=== PATIENT | female | born 1980 | race Caucasian/White ===

== ENCOUNTER 2021-10-14 08:00 | Outpatient (CLI) | payer BC | END 2021-10-14 23:59 | disposition home or self-care (01) | LOC: LAB.N 08:00 | PROVIDERS: ATTEND Family Medicine | DX: U07.1 COVID-19 (principal) ==

== ENCOUNTER 2022-02-11 11:48 | Emergency (ER) | payer BC ==
[2022-02-11 12:00] VITALS: BP 142/86
--- NOTE | 2022-02-11 12:19 | ED Physician Documentation ---
History of Present Illness - Stated complaint Stated Complaint: L ARM INJURY - Chief complaint Chief Complaint: Trauma Ext - Additonal information Additional information: 41-year-old female presents emergency department for evaluation of acute left wrist injury. She is right-hand dominant. She was helping her son move a couch yesterday when the wrist twisted in an awkward manner and she felt a pop on the ulnar side. Now pain in the wrist with any pronation and supination. No swelling. No history of previous injury. Review of Systems Constitutional: reports: Reviewed and negative Nose: reports: Reviewed and negative Throat: reports: Reviewed and negative Musculoskeletal: reports: Extremity pain (left wrist) PD PAST MEDICAL HISTORY - Past Medical History Past Medical History: No Cardiovascular: None Respiratory: None Neuro: None Endocrine/Autoimmune: None GI: None DIRECTOR OF PROFESSIONAL SERVICES: None : None HEENT: None Psych: None Musculoskeletal: None Derm: None - Past Surgical History Past Surgical History: Yes General: Appendectomy Ortho: Arthroscopic surgery - Present Medications Home Medications: Ambulatory Orders Medication Instructions Recorded Confirmed No Known Home Medications 02/11/22 02/11/22 - Allergies Allergies/Adverse Reactions: Allergies Allergy/AdvReac Type Severity Reaction Status Date / Time No Known Drug Allergies Allergy Verified 02/11/22 11:57 - Social History Does the pt smoke?: No Smoking Status: Never smoker Does the pt drink ETOH?: Yes Does the pt have substance abuse?: No - Immunizations Immunizations are current?: Yes PD ED PE EXPANDED - General General: Alert, No acute distress - Extremities Extremities: Left wrist (pain carpal bones ulnar side with palpation; normal flexion/extension though painful. normal supination/pronation, increased pain 2+ radial pulse) Results - Vitals Vitals: Vital Signs - 24 hr 02/11/22 11:57 Temperature 36.8 C Heart Rate 85 Respiratory 16 Rate Blood Pressure 142/86 H O2 Saturation 100 Oxygen O2 Source Room air - Rads (name of study) left wrist Radiology: Final report received (No acute fracture or osseous lesion or dislocation) PD MEDICAL DECISION MAKING - ED course Complexity details: reviewed results, re-evaluated patient, considered differential, d/w patient ED course: 41-year-old female presents emergency department for evaluation of acute left wrist injury sustained when moving a couch yesterday. She had an abnormal twisting sensation and felt a pop on the ulnar side. She has pain with palpation distal to the ulna as well as pain with pronation and supination but no obvious deformity swelling or erythema. X-ray is negative. I suspect she likely has a wrist sprain. She does have a splint from home that is appropriate for use. Discussed routine care to include Motrin, Tylenol and ice. Follow-up with PCP if not markedly better in 7 to 10 days. Departure - Departure Disposition: Home, Self Care Clinical Impression: Left wrist sprain Qualifiers: Encounter type: initial encounter Qualified Code(s): S63.502A - Unspecified sprain of left wrist, initial encounter Condition: Stable Record reviewed to determine appropriate education?: Yes Instructions: ED Sprain Wrist Comments: Rohini was seen today in the emergency department because you developed pain on the ulnar side of your wrist after moving a heavy couch yesterday. He felt a pop in the wrist. We do not see anything obvious to suggest a fracture. I suspect you most likely have a sprain injury. Over the next week or so would like you to ice the wrist once or twice a day. You can take 500 mg of Tylenol 2-3 times a day or alternate with Motrin 600 mg 2-3 times a day. I recommend you continue to wear the wrist splint that you have when out of bed. In most typical sprains symptoms are better at about 7 to 10 days. If not markedly improved you can follow-up with your primary care provider or return to the emergency department for repeat imaging.
--- NOTE | 2022-02-11 12:29 | XRAY Report ---
PROCEDURE: Wrist 3 View LT INDICATIONS: Pain ulnar side/carpal bones after twisting/imacti TECHNIQUE: 3 views of the wrist were acquired. COMPARISON: None FINDINGS: Bones: No fractures or dislocations. No suspicious bony lesions. Soft tissues: No suspicious soft tissue calcifications. IMPRESSION: Normal left wrist Reviewed by: Jamie Schmitz on 02/11/2022 11:28 AM CASEY Approved by: Jamie Schmitz on 02/11/2022 11:28 AM CASEY Station ID: [id number]
== END 2022-02-11 12:50 | disposition home or self-care (01) ==
LOC: ED 11:48
DX: S63.502A Unspecified sprain of left wrist, initial encounter (principal); X50.1XXA Overexertion from prolonged static or awkward postures, initial encounter
CPT/HCPCS: 99282; 99283

== ENCOUNTER 2022-09-28 12:25 | Outpatient (CLI) | payer OTHER ==
--- NOTE | 2022-09-29 09:45 | Ultrasound Report ---
PROCEDURE: Head or Neck Soft Tissue INDICATIONS: GOITER TECHNIQUE: Real time scanning was performed of the neck region of interest, with image documentation . COMPARISON: None. FINDINGS: Right: Thyroid lobe measures 5.3 x 1.8 x 1.7 cm, and is homogeneous in echotexture. Left: Thyroid lobe measures 4.7 x 1.6 x 1.8 cm, and is homogenous in echotexture. Isthmus: 4 mm thick. Nodule number: One Location: Right mid Size: 1.2 x 0.9 x 0.2 cm. Composition: Solid Echogenicity: Hypoechoic Shape: wider than tall. Margins: Size Echogenic foci: None Total points: 4 ACR TI-RADS category: TI-RADS 4 Nodule number: Two Location: Right superior Size: 0.5 x 0.4 x 0.5 cm. Composition: Solid Echogenicity: Hypoechoic Shape: wider than tall. Margins: Size Echogenic foci: None Total points: 4 ACR TI-RADS category: TI-RADS 4 Nodule number: Three Location: Left superior Size: 0.6 x 0.5 x 0.5 cm. Composition: Cystic Echogenicity: Hypoechoic Shape: wider than tall. Margins: Size Echogenic foci: None Total points: 2 ACR TI-RADS category: TI-RADS 2 Nodule number: Four Location: Isthmus Size: 0.5 x 0.4 x 0.6 cm. Composition: Cystic Echogenicity: Hypoechoic Shape: wider than tall. Margins: Size Echogenic foci: None Total points: 2 ACR TI-RADS category: TI-RADS 2 IMPRESSION: 1. Mild thyromegaly. Please correlate with thyroid function tests. 2. Small solid and cystic thyroid nodules. Please see enclosed follow-up recommendation. ACR TI-RADS definitions and recommendations: TI-RADS 1 (benign): 0 points. FNA not needed. TI-RADS 2 (not suspicious): 2 points. FNA not needed. TI-RADS 3 (mildly suspicious): 3 points. "FNA if 2.5 cm or larger, follow up if 1.5 cm or larger (at 1, 3, and 5 years). TI-RADS 4 (moderately suspicious): 4-6 points. "FNA if 1.5 cm or larger, follow up if 1 cm or larger (at 1, 2, 3, and 5 years). TI-RADS 5 (highly suspicious): 7 points or more. "FNA if 1 cm or larger, follow up if 0.5 cm or larger (every year for 5 years). Reviewed by: Neil Elise MD on 09/29/2022 9:44 AM PST Approved by: Neil Elise MD on 09/29/2022 9:44 AM PST Station ID: [id number]
== END 2022-09-28 12:26 | disposition home or self-care (01) ==
LOC: DI 12:25
PROVIDERS: ATTEND Nurse Practitioner Family
DX: E04.2 Nontoxic multinodular goiter (principal)

== ENCOUNTER 2022-12-29 12:30 | Outpatient (CLI) | payer OTHER ==
[2022-12-29 20:05] LABS: BACTERIAL VAGINOSIS DNA POSITIVE (NEGATIVE); CANDIDA KRUSEI DNA NEGATIVE (NEGATIVE)
[2022-12-29 20:06] LABS: CANDIDA GLABRATA DNA NEGATIVE (NEGATIVE); CANDIDA GROUP DNA POSITIVE (NEGATIVE); TRICHOMONAS VAGINALIS DNA NEGATIVE (NEGATIVE)
[2022-12-29 22:13] LABS: CHLAMYDIA TRACHOMATIS DNA NEGATIVE (NEGATIVE)
[2022-12-29 22:14] LABS: NEISSERIA GONORRHOEAE DNA NEGATIVE (NEGATIVE)
== END 2022-12-29 12:45 | disposition home or self-care (01) ==
LOC: LAB.N 12:30
PROVIDERS: ATTEND Nurse Practitioner
DX: N89.8 Other specified noninflammatory disorders of vagina (principal)
CPT/HCPCS: 81514; 87491; 87591; 87661

== ENCOUNTER 2023-03-16 11:21 | Outpatient (CLI) | payer OTHER ==
[2023-03-16 18:14] LABS: BASOPHILS # (AUTO) 0.1 10^3/uL (0.0-0.1); EOSINOPHILS # (AUTO) 0.2 10^3/uL (0.0-0.7); EOSINOPHILS % (AUTO) 2.5 %; HCT - HEMATOCRIT 47.7 % (37.0-47.0); HGB - HEMOGLOBIN 15.7 g/dL (12.0-16.0); LYMPHOCYTES # (AUTO) 2.3 10^3/uL (1.5-3.5); LYMPHOCYTES % (AUTO) 29.8 %; MEAN CORPUSCULAR HGB CONC 32.9 g/dL (32.0-36.0); MEAN CORPUSCULAR VOLUME 91.2 fL (81.0-99.0); MEAN PLATELET VOLUME 9.3 fL (7.9-10.8); MONOCYTES # (AUTO) 0.6 10^3/uL (0.0-1.0); MONOCYTES % (AUTO) 7.5 %; NEUTROPHILS # (AUTO) 4.6 10^3/uL (1.5-6.6); NEUTROPHILS % (AUTO) 58.9 %; PLT - PLATELET COUNT 273 10^3/uL (130-450); RED BLOOD COUNT 5.23 10^6/uL (4.20-5.40); RED CELL DISTRIBUTION WIDTH 12.7 % (12.0-15.0); WHITE BLOOD COUNT 7.7 x10^3/uL (4.8-10.8)
[2023-03-16 18:28] LABS: ESTIMATED AVERAGE GLUCOSE 94 mg/dL (70-100); HEMOGLOBIN A1c% 4.9 % (4.27-6.07)
[2023-03-16 18:30] LABS: ALBUMIN 4.2 g/dL (3.2-5.5); ALBUMIN/GLOBULIN RATIO 1.6 (1.0-2.2); ALKALINE PHOSPHATASE 59 IU/L (42-121); ALT ALANINE AMINOTRANSFERASE 18 IU/L (10-60); AST ASPARTATE AMINOTRANSFERASE 15 IU/L (10-42); BILIRUBIN,TOTAL 1.1 mg/dL (0.2-1.0); BUN - BLOOD UREA NITROGEN 17 mg/dL (6-20); CALCIUM 11.1 mg/dL (8.5-10.3); CARBON DIOXIDE - CO2 28 mmol/L (21-32); CHLORIDE 107 mmol/L (101-111); CHOL/HDL RATIO 6.1 (<4.4); CHOLESTEROL 215 mg/dL; CREATININE 0.8 mg/dL (0.6-1.3); GFR - MDRD 78 (>89); GLUCOSE 108 mg/dL (74-104); HDL CHOLESTEROL 35 mg/dL; LDL CHOLESTEROL,CALCULATED 154 mg/dL; LDL/HDL RATIO 4.4 (<4.4); POTASSIUM 4.1 mmol/L (3.5-4.5); SODIUM 136 mmol/L (135-145); TOTAL PROTEIN 6.8 g/dL (6.4-8.9); TRIGLYCERIDES 128 mg/dL (48-352); VLDL CHOLESTEROL 26 mg/dL
[2023-03-16 18:39] LABS: THYROID STIMULATING HORMONE 1.18 uIU/mL (0.34-5.60)
== END 2023-03-16 11:22 | disposition home or self-care (01) ==
LOC: LAB.N 11:21
PROVIDERS: ATTEND Nurse Practitioner Family
DX: Z00.00 Encounter for general adult medical examination without abnormal findings (principal); Z13.220 Encounter for screening for lipoid disorders; Z13.1 Encounter for screening for diabetes mellitus; Z13.29 Encounter for screening for other suspected endocrine disorder
CPT/HCPCS: 36415; 80053; 80061; 83036; 83721; 84443; 85025

== ENCOUNTER 2023-10-22 12:26 | Outpatient (CLI) | payer OTHER ==
--- NOTE | 2023-10-22 13:29 | Ultrasound Report ---
PROCEDURE: Soft Tissue Head or Neck INDICATIONS: THYROID NODULE TECHNIQUE: Real-time scanning was performed of the thyroid gland, with image documentation. COMPARISON: Ultrasound 09/28/2022 FINDINGS: Right: Thyroid lobe measures 4.2 x 1.9 x 1.8 cm, and is homogeneous in echotexture. Left: Thyroid lobe measures 4.6 x 1.5 x 1.6 cm, and is homogenous in echotexture. Isthmus: 0.4 cm thick. Nodule number: One Location: Right midpole Size: 1.3 x 1.0 x 1.0 cm. Previously 1.2 x 0.9 x 0.9. Composition: Mixed cystic and solid (1 point). Echogenicity: Hypoechoic (2 points). Shape: wider than tall (0 points). Margins: Smooth (0 points). Echogenic foci: None (0 points). Total points: 3 ACR TI-RADS category: TI-RADS 3: Mildly suspicious. IMPRESSION: No significant interval growth of the TI-RADS 3 lesion (downgraded from TI-RADS 4 due to the presence of internal cystic change). At this size, no further follow-up is indicated per ACR consensus guidel rod. ACR TI-RADS definitions and recommendations: TI-RADS 1 (benign): 0 points. FNA not needed. TI-RADS 2 (not suspicious): 2 points. FNA not needed. TI-RADS 3 (mildly suspicious): 3 points. "FNA if 2.5 cm or larger, follow up if 1.5 cm or larger (at 1, 3, and 5 years). TI-RADS 4 (moderately suspicious): 4-6 points. "FNA if 1.5 cm or larger, follow up if 1 cm or larger (at 1, 2, 3, and 5 years). TI-RADS 5 (highly suspicious): 7 points or more. "FNA if 1 cm or larger, follow up if 0.5 cm or larger (every year for 5 years). Reviewed by: Clinton Wing MD on 10/22/2023 1:28 PM PDT Approved by: Clinton Wing MD on 10/22/2023 1:28 PM PDT Station ID: [id number]
== END 2023-10-22 12:27 | disposition home or self-care (01) ==
LOC: DI 12:26
PROVIDERS: ATTEND Nurse Practitioner Family
DX: E04.1 Nontoxic single thyroid nodule (principal)